=== PATIENT | female | born 1995 | race Caucasian/White ===

== ENCOUNTER 2017-03-25 08:44 | Emergency (ER) | payer OTHER ==
[~2017-03-25] VITALS: Ht 170.2 cm; Wt 89.8 kg
[2017-03-25 08:46] VITALS: Ht 170.2 cm; Wt 89.8 kg
[2017-03-25 08:59] VITALS: O2SAT 97
[2017-03-25] MEDS ORDERED: LORAZEPAM 2 MG/ML 1 ML VIAL IV STA (09:34)
[2017-03-25 09:45] LABS: BASO % 0.1 %; BASO ABS # 0.01 K/uL (0-0.2); COMPLETE YES; EOS % 0.3 %; IG% 0.1 %; LYMPH % 20.8 %; LYMPH ABS # 1.58 K/uL (1.2-3.4); MEAN CELL VOLUME 88.4 fL (80-100); MEAN CORPUSCULAR HEMOGLOBIN 31.2 pg (25-34); MEAN CORPUSCULAR HGB CONC 35.2 g/dl (32-36); MEAN PLATELET VOLUME 9.7 fL (7.4-10.4); NEUT % 73.7 %; PLATELET COUNT 279 K/uL (130-400); RED BLOOD COUNT 4.75 M/uL (4.2-5.4); WHITE BLOOD COUNT 7.59 K/uL (4.8-10.8)
[2017-03-25 09:54] LABS: ALT/SGPT 23 U/L (12-78); AST/SGOT 13 U/L (15-37); BLOOD UREA NITROGEN 12 mg/dl (7-18); BUN/CREATININE RATIO 15.2 (10-20); CALCIUM 9.2 mg/dl (8.5-10.1); CARBON DIOXIDE 26 mmol/L (21-32); CHLORIDE 104 mmol/L (98-107); CREATININE 0.78 mg/dl (0.60-1.20); GLUCOSE 102 mg/dl (70-99); POTASSIUM 3.6 mmol/L (3.5-5.1); SODIUM 136 mmol/L (136-145)
[2017-03-25 09:59] LABS: ALKALINE PHOSPHATASE 58 U/L (45-117); CKMB/CK RATIO 0.9 (0-3.0)
[2017-03-25 10:02] LABS: POINT OF CARE TROPONIN I < 0.030 ng/ml (0-0.045)
[2017-03-25 10:13] LABS: PARTIAL THROMBOPLASTIN RATIO 1.2; PROTHROMBIN TIME (PATIENT) 10.3 SECONDS (9.0-12.0)
--- NOTE | 2017-03-25 10:19 | DIAGNOSTIC IMAGING REPORT ---
TWO VIEW CHEST CLINICAL HISTORY: Chest tightness. FINDINGS: PA and lateral chest radiographs are compared to study dated 03/25/2017. The cardiomediastinal silhouette is unremarkable. The lungs and pleural spaces are clear. There is no pneumothorax. The bony thorax appears intact. IMPRESSION: No active disease in the chest. Electronically signed by: Elvin Marcelo M.D. 03/25/2017 10:18 AM Dictated Date/Time: 03/25/2017 10:18 AM
[2017-03-25] MEDS ORDERED: ATV/1 PO (10:33)
--- NOTE | 2017-03-25 10:34 | EMERGENCY ROOM VISIT NOTE ---
History First contact with patient: 08:50 Chief Complaint: CHEST PAIN Stated Complaint: CHEST/ARM PAIN Nursing Triage Summary: "I'm having a lot of chest pain and I woke up not able to breathe. I couldn't feel from my knees down and my arms are all tingly." pt reports having green mucus History of Present Illness The patient is a 21 year old female who presents to the Emergency Room with complaints of chest tightness and not feeling well for the past month. The patient comes emergency room today because she woke up at 1 AM startled and felt like she could not take in a deep breath. She also felt tingly from her knees down and in her arms. The patient. The patient states that she feels tight in her chest and up into her throat. The patient denies any chest pain . The patient denies any shortness of breath. The patient denies any nausea vomiting. The patient denies any tobacco use, control. The patient denies any recent travel except for driving 3 hours to get home for Thanksgiving. The patient denies any recent leg pain. 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 The patient was seen a month ago at [facility] for upper respiratory symptoms which they told her were viral and placed her on prednisone. She was seen 3 days later at [facility] and was taken off the steroids but did not give any diagnosis or any other new medications. Then last week she started developing some pelvic pain and went to [facility] again and had a urinalysis and STD testing which was negative. The patient called her family doctor, which she has been appointment when she goes home on but since she was having chest pain they told her to come to the emergency room. . Review of Systems 10 system review was performed and was negative unless stated otherwise history of present illness. Past Medical/Surgical History Acne Social History Smoking Status: Never Smoker Smokeless Tobacco Use: No Alcohol Use: occasionally Drug Use: none Marital Status: single Housing Status: lives with roommate Occupation Status: [employer] Current/Historical Medications No Active Prescriptions or Reported Meds Physical Exam Vital Signs Date Time Temp Pulse Resp B/P (MAP) Pulse Ox O2 Delivery O2 Flow Rate FiO2 03/25/17 09:36 84 23 130/79 98 03/25/17 08:59 97 Room Air 03/25/17 08:58 101 03/25/17 08:55 Room Air 03/25/17 08:46 36.7 96 20 138/88 99 Room Air Physical Exam GENERAL: 21-year-old white female appears in no acute distress. MENTAL Status: Alert and oriented 3. The patient does not appear anxious. Blood processes good. EYES: PERRLA. EOMs intact. EARS: Canals clear. TMs without fluid level noted. PHARYNX: No erythema or edema noted. Airway is adequate. NECK: Supple, no lymphadenopathy noted. No carotid bruits noted. LUNGS: Clear auscultation without wheezes rales or rhonchi. CARDIAC: Regular rate and rhythm without murmur. Pulses is full and equal throughout. ABDOMEN: Positive bowel sounds all 4 quadrants. Soft, nontender to palpation without organomegaly or masses. LOWER EXTREMITIES: No cyanosis or edema noted. Calves are nontender. No palpable cords. Medical Decision & Procedures ER Provider Diagnostic Interpretation: TWO VIEW CHEST CLINICAL HISTORY: Chest tightness. FINDINGS: PA and lateral chest radiographs are compared to study dated 03/25/2017. The cardiomediastinal silhouette is unremarkable. The lungs and pleural spaces are clear. There is no pneumothorax. The bony thorax appears intact. IMPRESSION: No active disease in the chest. Electronically signed by: Elvin Marcelo M.D. 03/25/2017 10:18 AM Laboratory Results 03/25/17 09:00 Red Blood Count 4.75, Mean Corpuscular Volume 88.4, Mean Corpuscular Hemoglobin 31.2, Mean Corpuscular Hemoglobin Concent 35.2, Mean Platelet Volume 9.7, Neutrophils (%) (Auto) 73.7, Lymphocytes (%) (Auto) 20.8, Monocytes (%) (Auto) 5.0, Eosinophils (%) (Auto) 0.3, Basophils (%) (Auto) 0.1, Neutrophils # (Auto) 5.59, Lymphocytes # (Auto) 1.58, Monocytes # (Auto) 0.38, Eosinophils # (Auto) 0.02, Basophils # (Auto) 0.01 03/25/17 09:00 Test 03/25/17 09:00 03/25/17 09:42 White Blood Count 7.59 K/uL (4.8-10.8) Red Blood Count 4.75 M/uL (4.2-5.4) Hemoglobin 14.8 g/dL (12.0-16.0) Hematocrit 42.0 % (37-47) Mean Corpuscular Volume 88.4 fL (80-100) Mean Corpuscular Hemoglobin 31.2 pg (25-34) Mean Corpuscular Hemoglobin Concent 35.2 g/dl (32-36) Platelet Count 279 K/uL (130-400) Mean Platelet Volume 9.7 fL (7.4-10.4) Neutrophils (%) (Auto) 73.7 % Lymphocytes (%) (Auto) 20.8 % Monocytes (%) (Auto) 5.0 % Eosinophils (%) (Auto) 0.3 % Basophils (%) (Auto) 0.1 % Neutrophils # (Auto) 5.59 K/uL (1.4-6.5) Lymphocytes # (Auto) 1.58 K/uL (1.2-3.4) Monocytes # (Auto) 0.38 K/uL (0.11-0.59) Eosinophils # (Auto) 0.02 K/uL (0-0.5) Basophils # (Auto) 0.01 K/uL (0-0.2) RDW Standard Deviation 39.0 fL (36.4-46.3) RDW Coefficient of Variation 12.2 % (11.5-14.5) Immature Granulocyte % (Auto) 0.1 % Immature Granulocyte # (Auto) 0.01 K/uL (0.00-0.02) Prothrombin Time 10.3 SECONDS (9.0-12.0) Prothromb Time International Ratio 1.0 (0.9-1.1) Activated Partial Thromboplast Time 31.5 SECONDS (21.0-31.0) Partial Thromboplastin Ratio 1.2 Anion Gap 6.0 mmol/L (3-11) Est Creatinine Clear Calc Drug Dose 131.3 ml/min Estimated GFR () 126.0 Estimated GFR (Non- 108.7 BUN/Creatinine Ratio 15.2 (10-20) Calcium Level 9.2 mg/dl (8.5-10.1) Total Bilirubin 0.4 mg/dl (0.2-1) Direct Bilirubin < 0.1 mg/dl (0-0.2) Aspartate Amino Transf (AST/SGOT) 13 U/L (15-37) Alanine Aminotransferase (ALT/SGPT) 23 U/L (12-78) Alkaline Phosphatase 58 U/L (45-117) Total Creatine Kinase 77 U/L (26-192) Creatine Kinase MB 0.7 ng/ml (0.5-3.6) Creatine Kinase MB Ratio 0.9 (0-3.0) Total Protein 8.5 gm/dl (6.4-8.2) Albumin 4.5 gm/dl (3.4-5.0) Lipase 180 U/L (73-393) Bedside D-Dimer 200 ng/mlFEU (0-450) Bedside Troponin I < 0.030 ng/ml (0-0.045) Medications Administered Medications (Trade) Dose Ordered Sig/Marlena Route Start Time Stop Time Status Last Admin Dose Admin Lorazepam (Ativan Inj) 0.5 mg NOW STAT IV 03/25/17 09:34 03/25/17 09:38 DC 03/25/17 09:49 0.5 MG ECG Indication: other (chest tightness) Rhythm: normal sinus Findings: no acute ischemic change ED Course The patient was evaluated. The patient was placed on a monitor and continuous pulse ox. EKG was ordered interpreted by myself as above without any acute findings. IV access was obtained. CBC and differential, renal profile, LFTs and lipase levels were ordered. CK-MB, coags, pointing care troponin pointing care d-dimer were ordered. Chest x-ray was ordered and interpreted by the radiologist and myself as above without any acute findings.. The patient was given Ativan 0.5 mg IV. Labs are all reviewed and were unremarkable. The patient was feeling slightly better after the 0.5 mg of Ativan. I spoke with the patient to follow with her family doctor to be placed on something to prevent the anxiety rather than allowing it to happen and having to take Ativan. Also discussed the possibility of having them do an echocardiogram to evaluate for any valvular heart disease. The mother and patient were in agreement. The patient was discharged home in stable condition. Medical Decision Differential diagnosis include pneumonia, anxiety, panic attack, valvular heart disease, acute PE [place] Drug Monitoring Program Search Results: patient reviewed within database Blood Pressure Screening Patient's blood pressure: Normal blood pressure Impression Primary Impression: Anxiety Additional Impression: Panic attack Departure Information Dispostion Home / Self-Care Condition GOOD Prescriptions Lorazepam (ATIVAN) 1 Mg Tab 1 TAB PO Q6H, #12 TAB Prov: Faustina Marin PA-C 03/25/17 Referrals No Doctor, Assigned (PCP) Forms HOME CARE DOCUMENTATION FORM, IMPORTANT VISIT INFORMATION Patient Instructions ED Panic Attack, My [facility] Additional Instructions Try to find other activities that will relax use such as exercises, yoga, etc. Take Ativan as needed for anxiety or panic attacks. Keep your scheduled appointment with your family doctor when you get home for possible preventative medication for the anxiety and panic. Also he may feel that it is necessary to evaluate for any valvular heart disease although I do not hear any murmurs on exam. If symptoms worsen in the interim, return to ER. Problem Qualifiers
[2017-03-25 10:51] VITALS: BP 130/79; PULSE 83; TEMP 36.7; O2SAT 97
== END 2017-03-25 10:52 | disposition home or self-care (01) ==
LOC: C.EDB 08:46 → C.EDA 10:52
DX: R07.9 Chest pain, unspecified (principal); M79.603 Pain in arm, unspecified; F41.9 Anxiety disorder, unspecified; F41.0 Panic disorder [episodic paroxysmal anxiety]

== ENCOUNTER → 2017-08-28 | Outpatient (CLI) | payer OTHER | END | disposition home or self-care (01) | LOC: C.LAB 18:40 | PROVIDERS: ATTEND Nurse Practitioner Family | DX: N89.8 Other specified noninflammatory disorders of vagina (principal); R10.30 Lower abdominal pain, unspecified ==